=== PATIENT | male | born 1980 | race Caucasian/White ===

== ENCOUNTER 2016-05-04 16:58 | Emergency (ER) | payer OTHER ==
--- NOTE | 2016-05-04 17:30 | ED EKG INTERP ---
EKG Interpretation - EKG Time of EKG reading by physician:: 17:17 EKG Read and Signed by:: Dorothy Beltran EKG Interpretation (*Must complete 3 of following elements*): Normal Rate: 73 Rhythm: NSR [place]: normal QRS: normal NM Interval: normal ST Wave: normal Attestation - Scribe Verification/Attestation Scribe:: Filemon Tolentino Acting as Scribe for:: Dorothy Beltran Scribe documention review:: This chart was documented by a scribe and accurately reflects the service the provider performed and the decisions made by the provider. Physician Attestation - Physician Attestation I, the provider, attest to the following statement:: Dorothy Beltran Physician documentation Attestation:: This documentation recorded by the scribe accurately reflects the service I personally performed and the decisions made by me.
--- NOTE | 2016-05-04 17:47 | EKG Report ---
Test Performed on : 05/04/2016 5:17:23 PM Test Reason : chest pain/epigastric pain Blood Pressure : / mmHG Vent. Rate : 073 BPM Atrial Rate : 073 BPM P-R Int : 158 ms QRS Dur : 088 ms QT Int : 372 ms P-R-T Axes : 039 062 034 degrees QTc Int : 409 ms Normal sinus rhythm. Normal ECG No previous ECGs available Unconfirmed Result
--- NOTE | 2016-05-04 18:56 | PROVIDER DOCUMENTATION ---
HPI-Abdominal Pain/GI Problem - General Chief Complaint: Epigastric Pain Stated Complaint: FLU LIKE SX Time Seen by Provider: 05/04/16 18:39 Source: patient Allergies/Adverse Reactions: Patient Allergies Allergy/AdvReac Type Severity Reaction Status Date / Time venom-honey bee Allergy Severe ANAPHYLAXIS Verified 09/22/15 15:53 [bee venom (honey bee)] ibuprofen [From Motrin] Allergy RASH Verified 09/22/15 15:53 strawberry Allergy RASH Verified 09/22/15 15:53 tramadol Allergy RASH Verified 09/22/15 15:53 - History of Present Illness-ABD Nature of Presenting Problems: 36 y/o WM c/o N/V/D, abd. pain, CP x 7 days. Pt states 8/10 pain and constant. States vomits every time he eats, about 3x daily, and has 4-5 episodes of diarrhea daily. CP is central and radiates to R anterior chest. Denies any numbness/tingling, radiation to back, UE, or jaw. Reports had the "bird flu" 8 months ago and had to be hospitalized for it here. Denies influenza vaccine, sick contacts, fever, international travel. States chills. Review of Systems - Adult - REVIEW OF SYSTEMS - ADULT Constitutional: reports: chills. denies: fever Eyes: reports: no symptoms reported. denies: blurred vision, double vision Ears, Nose, Mouth & Throat: reports: no symptoms reported. denies: ear pain, nose pain, throat pain Cardiovascular: reports: see HPI, chest pain. denies: palpitations Respiratory: reports: no symptoms reported. denies: cough, shortness of breath , wheezing Gastrointestinal: reports: see HPI, abdominal pain, hematemesis, diarrhea, nausea, vomiting. denies: constipation, rectal bleeding Genitourinary: reports: no symptoms reported. denies: dysuria, discharge Musculoskeletal: reports: no symptoms reported. denies: joint pain, joint swelling Integumentary: reports: no symptoms reported. denies: nail changes, rash Neurological: reports: no symptoms reported. denies: numbness, paresthesia Psychiatric: reports: no symptoms reported Endocrine: reports: no symptoms reported. denies: cold intolerance, heat intolerance Hematologic/Lymphatic: reports: no symptoms reported. denies: easy bruising, prolonged bleeding Allergic/Immunologic: reports: no symptoms reported All Other Systems: Reviewed and Negative Past History - Adult - PAST MEDICAL HISTORY-ADULT Review of Records: reports: Nursing Assessment Review, Medications Reviewed Major Childhood Illnesses: reports: denies history Cardiovascular: reports: denies history Respiratory: reports: denies history Gastrointestinal: reports: denies history Obstetrical/Gynecological: reports: denies history Genitourinary: reports: kidney stones Musculoskeletal: reports: denies history Neurological: reports: denies history Endocrine/Immune: reports: denies history Other Conditions: reports: denies history - PRIOR SURGERIES/PROCEDURES Surgical/Procedure History: reports: none - IMMUNIZATION STATUS Childhood Immunizations: See Nurse Assessment Flu Vaccine: See Nurse Assessment - SOCIAL HISTORY Smoking: chew, less than 1 pack/day Provider spent 3-5 mins advising pt. on dangers of tobacco.: Discussed manners to quit use, and f/u contacts for add'l counseling. Alcohol Use Frequency: occasionally Number of drinks per typical drinking period:: 2 drinks Physical Exam-General - PHYSICAL EXAM-ADULT Initial Vital Signs Reviewed: Yes - CONSTITUTIONAL General Appearance: alert, mild distress - EYES Eyes: pink conjunctivae - HEAD, EARS, NOSE, MOUTH & THROAT HENMT: normocephalic/atraumatic, moist mucous membranes, pharynx normal - NECK Neck: supple, normal inspection - RESPIRATORY Respiratory: lungs clear, normal breath sounds. negative: chest non-tender ( TTP central), crackles, rales, rhonchi, stridor, wheezing - CARDIOVASCULAR Cardiovascular: regular rate, rhythm. negative: bradycardia, tachycardia - GASTROINTESTINAL (ABDOMEN) Abdominal Exam: normal bowel sounds, soft, tenderness (epigastric). negative: distended, guarding, rigid, rebound, McBurney's point tenderness, Siddiqui's sign - MUSCULOSKELETAL Back Exam: normal inspection, no CVA tenderness Extremity: normal gait - SKIN Integumentary: normal color, normal turgor, warm/dry - NEUROLOGIC Neurologic: negative: aphasia - PSYCHIATRIC Psych/Mental Status: normal mood/affect, normal thought content, normal thought process, oriented x 3 Progress - PLAN OF CARE/RESULTS Progress/Plan/Lab Results: Laboratory Tests 05/04/16 05/04/16 05/04/16 18:00 18:00 18:00 WBC 8.57 RBC 5.26 Hgb 14.7 Hct 44.1 MCV 83.8 MCH 27.9 MCHC 33.3 RDW Std Deviation 13.5 Plt Count 258 MPV 10.0 Immature Gran % (Auto) 0.7 H Neut % (Auto) 60.4 Lymph % (Auto) 25.1 [place] % (Auto) 7.6 Eos % (Auto) 5.5 Baso % (Auto) 0.7 Immature Gran # (Auto) 0.06 H Neut # (Auto) 5.18 Lymph # (Auto) 2.15 [place] # (Auto) 0.65 H Eos # (Auto) 0.47 Baso # (Auto) 0.06 Sodium 138 Potassium 3.6 Chloride 103 Carbon Dioxide 24 L Anion Gap 11 BUN 9 Creatinine 0.9 Estimated GFR/1.73 m2 > 60 BUN/Creatinine Ratio 10 Glucose 103 Calculated Osmolality 275 Calcium 9.5 Total Bilirubin 0.50 AST 142 H ALT 155 H Alkaline Phosphatase 88 Troponin T < 0.010 Total Protein 7.7 Albumin 4.1 Globulin 4.0 Albumin/Globulin Ratio 1.0 Amylase 38 Lipase 46 Urine Source Urine Color Urine Clarity Urine pH Ur Specific [place] Urine Protein Urine Ketones Urine Blood Urine Nitrite Urine Bilirubin Urine Urobilinogen Urine Microscopic RBC Urine WBC Urine Microscopic WBC Ur Epithelial Cells Urine Bacteria Urine Glucose Influenza A (Rapid) Influenza B (Rapid) 05/04/16 05/04/16 18:10 Unknown WBC RBC Hgb Hct MCV MCH MCHC RDW Std Deviation Plt Count MPV Immature Gran % (Auto) Neut % (Auto) Lymph % (Auto) [place] % (Auto) Eos % (Auto) Baso % (Auto) Immature Gran # (Auto) Neut # (Auto) Lymph # (Auto) [place] # (Auto) Eos # (Auto) Baso # (Auto) Sodium Potassium Chloride Carbon Dioxide Anion Gap BUN Creatinine Estimated GFR/1.73 m2 BUN/Creatinine Ratio Glucose Calculated Osmolality Calcium Total Bilirubin AST ALT Alkaline Phosphatase Troponin T Total Protein Albumin Globulin Albumin/Globulin Ratio Amylase Lipase Urine Source CLEAN CATCH Urine Color YELLOW Urine Clarity CLEAR Urine pH 7.0 Ur Specific [place] 1.010 Urine Protein NEGATIVE Urine Ketones NEGATIVE Urine Blood NEGATIVE Urine Nitrite NEGATIVE Urine Bilirubin NEGATIVE Urine Urobilinogen NORMAL Urine Microscopic RBC <10 Urine WBC NEGATIVE Urine Microscopic WBC <10 Ur Epithelial Cells <10 Urine Bacteria NEGATIVE Urine Glucose NEGATIVE Influenza A (Rapid) NEGATIVE Influenza B (Rapid) NEGATIVE Orders Category Date Time Status Saline Loc DIRECTED Care 05/04/16 18:41 Active NPO Diet 05/04/16 18:[address] ABD/PELVIS W/ IV CONT ONLY [CT] Stat Exams 05/04/16 20:09 Completed AMYLASE [CHEM] Stat Lab 05/04/16 18:00 Completed CBC WITH ELECTRONIC DIFF [HEME] Stat Lab 05/04/16 18:00 Completed COMPREHENSIVE METABOLIC PANEL [CHEM] Stat Lab 05/04/16 18:[address] Stat Lab 05/04/16 18:10 Completed LIPASE [CHEM] Stat Lab 05/04/16 18:00 Completed TROPONIN T Stat Lab 05/04/16 18:[address] W/POSS RFLX CULT [URINALYSIS] Stat Lab 05/04/16 Completed 0.9% Sodium Chloride Inj [Ns] 1,000 ml Med 05/04/16 18:57 Discontinued IV 999 mls/hr Ciprofloxacin [Cipro] Med 05/04/16 21:22 Discontinued 500 mg PO NOW ONE Hydrocodone/APAP 7.5 mg/325 mg [[place]-7.5] Med 05/04/16 21:25 Discontinued 1 each PO NOW ONE Morphine Med 05/04/16 21:25 Discontinued 4 mg IV NOW ONE Ondansetron Odt [Zofran Odt] Med 05/04/16 21:25 Discontinued 4 mg PO NOW ONE Ondansetron [Zofran] Med 05/04/16 18:57 Discontinued 4 mg IV NOW ONE Pantoprazole [Protonix] Med 05/04/16 18:58 Discontinued 40 mg IV NOW ONE Sodium Chloride 0.9% Med 05/04/16 18:58 Discontinued 10 ml INJ NOW ONE EKG [EKG] Stat Ther 05/04/16 17:17 Draft Vital Signs Temp Pulse Resp BP Pulse Ox 05/04/16 22:18 98 F 65 18 157/099 95 05/04/16 17:09 98.3 F 95 H 20 135/73 97 venom-honey bee [bee venom (honey bee)] Allergy (Severe, Verified 09/22/15 15:53 ) ANAPHYLAXIS ibuprofen [From Motrin] Allergy (Verified 09/22/15 15:53) RASH strawberry Allergy (Verified 09/22/15 15:53) RASH tramadol Allergy (Verified 09/22/15 15:53) RASH Clindamycin [Cleocin] 150 mg PO Q6HR #30 capsule 09/22/15 Hydrocodone/APAP 5 mg/325 mg [[place]-5] 1 each PO Q6H PRN PRN #12 tablet Sulfamethoxazole/Trimethoprim [Bactrim Ds Tablet] 1 each PO BID #10 tablet 09/21 Azithromycin 500 mg PO BID #3 tablet 05/04/16 Ciprofloxacin HCl [Cipro] 500 mg PO BID #10 tablet 05/04/16 Dicyclomine [Bentyl] 10 mg PO 4XDAY #30 capsule 05/04/16 Omeprazole [Prilosec] 40 mg PO DAILY #30 capsule. 05/04/16 Ondansetron [Zofran] 4 mg PO Q6H PRN PRN #20 tablet 05/04/16 Promethazine [Phenergan] 25 mg PO Q6H PRN PRN #20 tablet 05/04/16 NICOTINE DEPENDENCE, CIGARETTES, UNCOMPLICATED (05/04/16) FATTY (CHANGE OF) LIVER, NOT ELSEWHERE CLASSIFIED (05/04/16) HEMATEMESIS (05/04/16) OTHER CHEST PAIN (05/04/16) EPIGASTRIC PAIN (05/04/16) EPIGASTRIC ABDOMINAL TENDERNESS (05/04/16) NAUSEA WITH VOMITING, UNSPECIFIED (05/04/16) DIARRHEA, UNSPECIFIED (05/04/16) CHILLS (WITHOUT FEVER) (05/04/16) ABNORMAL LEVELS OF OTHER SERUM ENZYMES (05/04/16) TOBACCO ABUSE COUNSELING (05/04/16) PERSONAL HISTORY OF URINARY CALCULI (05/04/16) Discussed pt with Dr. Kirkpatrick; he agreed with d/c and f/u with GI specialist after reviewing CT and labwork. Discussed results with pt and pt passed PO challenge prior to d/c from the ED. states feeling better. - CT/MRI 1 CT Study: Abdomen, Pelvis Impression: See EMR Report (No obstruction, free fluid, appendicitis, or significant change since 12/31/2014. per Dr. Wylie) Departure - Departure Time of Disposition Order: 21:13 DIAGNOSIS: Elevated liver enzymes Nausea & vomiting Qualifiers: Vomiting type: unspecified Vomiting Intractability: non-intractable Qualified Code(s): R11.2 - Nausea with vomiting, unspecified Disposition: HOME 01 Certified Medical Emergency: Emergent Condition: Stable Additional Instructions: Follow up with specialist for recheck. Take medications as directed. Drink plenty of fluids. ED Follow Up Instructions: You have been treated by a care provider in the Emergency Department. These instructions are being provided to you so you can have an understanding of how to care for yourself upon discharge. Upon discharge from the Emergency Department, you are responsible for making arrangements for follow-up care by a physician of your choice. Take all prescribed medications as directed. Return to the Emergency Department immediately for any new or worsening symptoms. You may call the Physician Referral phone number at [phone] to obtain a list of Physicians who are taking new patients. Prescriptions: Azithromycin 500 mg PO BID #3 tablet Dicyclomine [Bentyl] 10 mg PO 4XDAY #30 capsule Ciprofloxacin HCl [Cipro] 500 mg PO BID #10 tablet Promethazine [Phenergan] 25 mg PO Q6H PRN PRN #20 tablet PRN Reason: Nausea Omeprazole [Prilosec] 40 mg PO DAILY #30 capsule. Ondansetron [Zofran] 4 mg PO Q6H PRN PRN #20 tablet PRN Reason: Nausea Referrals: None,PCP [Primary Care Provider] - Harrison Pedersen MD [STAFF PHYSICIAN] - Forms: Return to School/Parent Work Instructions: Dicyclomine tablets or capsules, Ondansetron tablets, Promethazine tablets, Nausea and Vomiting, Omeprazole tablets (OTC) Attestation - Physician/ Mid-level Attestation Patient care was provided by Mid-level provider (EXECUTIVE SALES ASSISTANT/PA):: Yes Mid-level provider:: Gaye Sloan Mid-level documentation review:: The Mid-level provider documentation, treatment plan and medical decision making was reviewed by the physician who agrees with all treatment and medical decision making by the [facility].
[2016-05-04] MEDS ORDERED: ZOFRAN IV ONE (18:57)
[2016-05-04] MEDS ORDERED: NS 1,000 ML IV ONE (18:57)
[2016-05-04] MEDS ORDERED: SODIUM CHLORIDE 0.9% INJ ONE (18:58)
[2016-05-04] MEDS ORDERED: PROTONIX IV ONE (18:58)
[2016-05-04 19:31] LABS: MANUAL DIFF NEEDED? NO
[2016-05-04 19:46] LABS: BASO% 0.7 % (0.0-0.8); EOS# 0.47 X1000 (0.0-0.7); EOS% 5.5 % (0.0-10.0); HEMATOCRIT 44.1 % (42.0-52.0); HEMOGLOBIN 14.7 g/dL (14.0-18.0); IMM GRAN# 0.06 X1000 (0.0-0.04); IMM GRAN% 0.7 % (0.0-0.5); LYMPH# 2.15 X1000 (1.2-3.4); LYMPH% 25.1 % (20.5-51.1); MCH 27.9 PG (27-31); MCHC 33.3 g/dL (33-37); MCV 83.8 FL (81-99); MONO# 0.65 X1000 (0.11-0.59); MONO% 7.6 % (1.7-9.3); NEUT% 60.4 % (42.2-75.2); PLT 258 X1000 (130-400); RBC 5.26 XMIL (4.7-6.1)
[2016-05-04 19:50] LABS: AGAP 11; ALBUMIN 4.1 g/dL (3.5-5.0); ALKALINE PHOSPHATASE 88 U/L (32-122); AMYLASE 38 U/L (20-200); BUN 9 mg/dL (8-22); CALCIUM 9.5 mg/dL (8.8-10.2); CHLORIDE 103 mmol/L (98-107); COSMO 275; GOT 142 U/L (10-34); GPT 155 U/L (10-44); LIPASE 46 U/L (13-60); POTASSIUM 3.6 mmol/L (3.5-5.1); SODIUM 138 mmol/L (136-145); TCO2 24 mmol/L (25-35); TOTAL PROTEIN 7.7 g/dL (6.3-8.3)
[2016-05-04 20:29] LABS: URINE CULTURE PL NEEDED? NO; URINE SOURCE CLEAN CATCH
[2016-05-04 20:41] LABS: BILIRUBIN URINE NEGATIVE (NEGATIVE); BLOOD URINE NEGATIVE (NEGATIVE); CLARITY CLEAR (CLEAR); COLOR YELLOW; GLUCOSE URINE NEGATIVE (NEGATIVE); LEUKOCYTES URINE NEGATIVE (NEGATIVE); NITRITE URINE NEGATIVE (NEGATIVE); PROTEIN URINE NEGATIVE (NEGATIVE); UROBILINOGEN URINE NORMAL
[2016-05-04 20:42] LABS: URINE EPITHELIAL CELLS <10 /HPF (<10); URINE RBC <10 /HPF (<10); URINE WBC <10 /HPF (<10)
[2016-05-04] MEDS ORDERED: CIPRO PO ONE (21:22)
[2016-05-04] MEDS ORDERED: MORPHINE IV ONE (21:25)
[2016-05-04] MEDS ORDERED: ZOFRAN ODT PO ONE (21:25)
[2016-05-04] MEDS ORDERED: NORCO-7.5 PO ONE (21:25)
[2016-05-04 22:18] VITALS: BP 157/099
--- NOTE | 2016-05-05 11:16 | Diag Imaging Result Document ---
PROCEDURE NAME: CT ABD/PELVIS W/ IV CONT ONLY - 05/04/2016 CT SCAN OF THE ABDOMEN AND PELVIS WITH IV CONTRAST: Oral contrast was not administered as per the Emergency Department Physician's request. INDICATION: Chest pain. Vomiting. Epigastric pain. Preliminary interpretation was given by the on-call radiologist. FINDINGS: There is decreased hepatic attenuation consistent with hepatic steatosis. The previously noted nodular densities within the posteromedial right lower lobe have cleared. The spleen appears normal in size. The pancreas and adrenal glands appear normal. There is a stable left renal cyst. Right renal calcification is no longer present. The appendix appears normal. There is no free fluid within the abdomen or pelvis. No adenopathy is identified. There are no inflammatory changes. There is a small fat-containing umbilical hernia. IMPRESSION: 1. Normal appendix. 2. No evidence for obstruction. 3. Hepatic steatosis.
== END 2016-05-04 22:00 | disposition home or self-care (01) ==
LOC: P.ED 16:58
DX: R11.2 Nausea with vomiting, unspecified (principal); R74.8 Abnormal levels of other serum enzymes; K76.0 Fatty (change of) liver, not elsewhere classified; R10.13 Epigastric pain; R19.7 Diarrhea, unspecified; R07.89 Other chest pain; R68.83 Chills (without fever); K92.0 Hematemesis; R10.816 Epigastric abdominal tenderness; F17.210 Nicotine dependence, cigarettes, uncomplicated; Z71.6 Tobacco abuse counseling; Z87.442 Personal history of urinary calculi
CPT/HCPCS: 74177; 80053; 81001; 82150; 83690; 84484; 85025; 87804; 93005; 96361; 96374; 96375; C9113; J2270; J2405; J7030; Q9967; S0164

== ENCOUNTER 2016-07-06 18:45 | Emergency (ER) | payer OTHER ==
[2016-07-06 18:57] VITALS: BP 152/91
--- NOTE | 2016-07-06 19:07 | PROVIDER DOCUMENTATION ---
HPI-General Adult - General Chief Complaint: Male Stated Complaint: MALE Time Seen by Provider: 07/06/16 18:59 Source: patient Allergies/Adverse Reactions: Patient Allergies Allergy/AdvReac Type Severity Reaction Status Date / Time venom-honey bee Allergy Severe ANAPHYLAXIS Verified 07/06/16 19:12 [bee venom (honey bee)] ibuprofen [From Motrin] Allergy RASH Verified 07/06/16 19:12 strawberry Allergy RASH Verified 07/06/16 19:12 tramadol Allergy RASH Verified 07/06/16 19:12 Home Medications: Home Medication List Medication Instructions Recorded Confirmed Last Taken Type Magnesium Citrate [Citrate of 300 ml PO ONCE #1 bottle 07/06/16 Unknown Rx Magnesia] Sulfamethoxazole/Trimethoprim 1 each PO BID #10 tablet 07/06/16 Unknown Rx [Bactrim Ds Tablet] - History of Present Illness -Gen Adult Nature of Presenting Problems: Pt. is 36 yom that presents with c/o burning on urination with suprapubic pelvic pain. Pt. reports some abd pain also with nausea. Pt. denies any fever or vomiting or diarrhea. Pt. has no other complaints at time of exam. Location of Pain/Injury: reports: abdomen, pelvis, genitalia. denies: head, face, mouth, neck, chest, upper extremity, hand(s), back, lower extremity, feet , upper body, lower body, generalized Pain Radiation: reports: no radiation Quality of Pain: reports: aching, burning. denies: cramping, dull, fullness, indigestion, pressure, sharp, stabbing, tearing, throbbing, tightness Severity: reports: moderate. denies: mild, severe Onset/Duration: reports: gradual, 2 days ago Timing: reports: still present. denies: improving, gone now, resolved prior to arrival, intermittent, constant, changing over time, getting worse Context/Activities at Onset: reports: none. denies: recent emotional stress, recent physical stress, recent trauma history, possible bad food, cold exposure , out of country travel Modifying Factors: improves with: nothing Associated Symptoms: reports: genitourinary problems, nausea, other (abd pain). denies: anxiety, arm pain, back/neck pain, chest pain, constipation, cough, diaphoresis, diarrhea, dizziness, EENT symptoms, fatigue, fever/chills, headaches, heartburn, joint pain, loss of appetite, malaise, muscle aches, sinus congestion/drainage, rash, seizure, shortness of breath, sensory/motor loss, pain with inspiration, swelling/mass in abdomen, syncope, vomiting, weakness, trouble walking Similar Symptoms Previously?: Yes Recently seen or treated by another doctor?: No Review of Systems - Adult - REVIEW OF SYSTEMS - ADULT Constitutional: reports: see HPI. denies: chills, fever, fatique Eyes: reports: see HPI. denies: discharge, blurred vision, double vision Ears, Nose, Mouth & Throat: reports: see HPI. denies: ear pain, hearing loss, sinus problem, nose pain, loose teeth, mouth/dental pain, throat pain, throat swelling Cardiovascular: reports: see HPI. denies: chest pain, irregular heart rate, orthopnea, syncope Respiratory: reports: see HPI. denies: cough, dyspnea on exertion, pleurisy, shortness of breath, wheezing Gastrointestinal: reports: see HPI, nausea. denies: abdominal pain, hematemesis , diarrhea, vomiting Genitourinary: reports: see HPI. denies: dysuria, discharge, flank pain, hesitency, urgency Musculoskeletal: reports: see HPI. denies: bone pain, back pain, joint pain, muscle aches, neck pain Integumentary: reports: see HPI. denies: hives, itching, rash, skin thickening Neurological: reports: see HPI. denies: ataxia, headache/migraines, numbness, seizure, tremors Psychiatric: reports: see HPI. denies: anxiety, depression, emotional problems , insomnia, panic attacks, suicidal thoughts Endocrine: reports: see HPI. denies: excessive sweating, cold intolerance, heat intolerance, polyuria Past History - Adult - PAST MEDICAL HISTORY-ADULT Review of Records: reports: Old Records Reviewed, Nursing Assessment Review, Medications Reviewed, Social history reviewed & non-contributory. Major Childhood Illnesses: reports: denies history Cardiovascular: reports: denies history Respiratory: reports: denies history Gastrointestinal: reports: denies history Obstetrical/Gynecological: reports: denies history Genitourinary: reports: kidney stones Musculoskeletal: reports: denies history Neurological: reports: denies history Endocrine/Immune: reports: denies history Other Conditions: reports: denies history - PRIOR SURGERIES/PROCEDURES Surgical/Procedure History: reports: none - IMMUNIZATION STATUS Childhood Immunizations: See Nurse Assessment Flu Vaccine: See Nurse Assessment - FAMILY HISTORY Family History: reviewed, not pertinent - SOCIAL HISTORY Smoking: quit greater than 1 year, chew Provider spent 3-5 mins advising pt. on dangers of tobacco.: Discussed the need to quit using tobacco Physical Exam-General - PHYSICAL EXAM-ADULT Initial Vital Signs Reviewed: Yes - CONSTITUTIONAL General Appearance: alert, mild distress, obese. negative: thin, anxious, lethargic, slow to respond, obtunded, combative - EYES Eyes: PERRL/EOMI, pink conjunctivae. negative: conjuctival exudate, scleral icterus, subconjunctival hemorrhage - HEAD, EARS, NOSE, MOUTH & THROAT HENMT: normocephalic/atraumatic, moist mucous membranes. negative: angioedema, frontal tenderness, maxillary tenderness - NECK Neck: non-tender, full range of motion, supple, normal inspection. negative: lymphadenopathy, trachial deviation, thyromegaly - RESPIRATORY Respiratory: lungs clear, normal breath sounds. negative: crackles, rales, rhonchi, stridor, wheezing - CARDIOVASCULAR Cardiovascular: normal peripheral pulses, regular rate, rhythm, no edema, no JVD , no murmur. negative: extra beats, friction rub, irregularly irregular - CHEST (BREASTS) Chest/Breast: deferred - GASTROINTESTINAL (ABDOMEN) Abdominal Exam: normal bowel sounds, soft, tenderness. negative: distended, guarding, rigid, rebound, hernia, mass - GENITOURINARY Male Genitalia: deferred Rectal Exam: deferred Hemoccult Exam: deferred - LYMPHATIC Lymphatic: no adenopathy. negative: axilla node tender, cervical node tenderness - MUSCULOSKELETAL Back Exam: normal inspection, no CVA tenderness, no vertebral tenderness. negative: ecchymosis, swelling, vertebral tenderness Extremity: normal range of motion, non-tender, normal gait, normal inspection. negative: deformity, erythema, inflammation, swelling, tenderness Peripheral Pulses: radial (R): 2+, radial (L): 2+ - SKIN Integumentary: normal color, normal turgor, warm/dry. negative: cyanosis, diaphoresis, ecchymosis, erythema, jaundice, mottled, pallor, petechiae, purpura , rash, swelling, tenderness - NEUROLOGIC Neurologic: grossly normal, no motor/sensory deficits. negative: aphasia, facial droop, focal weakness, motor weakness, sensory deficit - PSYCHIATRIC Psych/Mental Status: normal mood/affect, normal thought content, normal thought process, oriented x 3. negative: anxious, paranoid, tearful Progress - PLAN OF CARE/RESULTS Progress/Plan/Lab Results: Discussed results and plan of care with patient. Patient agrees with plan and verbalizes understanding. Vital Signs Temp Pulse Resp BP Pulse Ox 07/06/16 18:55 98 F 65 18 152/91 97 venom-honey bee [bee venom (honey bee)] Allergy (Severe, Verified 07/06/16 19:12 ) ANAPHYLAXIS ibuprofen [From Motrin] Allergy (Verified 07/06/16 19:12) RASH strawberry Allergy (Verified 07/06/16 19:12) RASH tramadol Allergy (Verified 07/06/16 19:12) RASH No Home Medications 07/06/16 Laboratory 07/06/16 18:55 Urine Source VOIDED Urine Color YELLOW Urine Clarity CLEAR Urine pH 5.0 Ur Specific [place] 1.020 Urine Protein TRACE A Urine Ketones NEGATIVE Urine Blood NEGATIVE Urine Nitrite NEGATIVE Urine Bilirubin NEGATIVE Urine Urobilinogen NORMAL Urine WBC TRACE A Urine Glucose NEGATIVE Orders Category Date Time Status FLAT/UPRIGHT ABD/1 VIEW CHEST [RAD] Stat Exams 07/06/16 19:[address] W/POSS RFLX CULT [URINALYSIS] Stat Lab 07/06/16 18:55 Results CefTRIAXONE [Rocephin] Med 07/06/16 19:26 Discontinued 1 gm IM NOW ONE Lidocaine 1% Pf [Xylocaine-Mpf 1%] Med 07/06/16 19:26 Discontinued 5 ml INJ NOW ONE Laboratory Tests 07/06/16 18:55 Urine Source VOIDED Urine Color YELLOW Urine Clarity CLEAR Urine pH 5.0 Ur Specific [place] 1.020 Urine Protein TRACE A Urine Ketones NEGATIVE Urine Blood NEGATIVE Urine Nitrite NEGATIVE Urine Bilirubin NEGATIVE Urine Urobilinogen NORMAL Urine WBC TRACE A Urine Glucose NEGATIVE - XRAY 1 XRAY Study: Chest, Abdomen XRAY Interpretation: Mild constipation ([place]) Departure - Departure Time of Disposition Order: 19:27 DIAGNOSIS: Cystitis Abdominal pain Qualifiers: Abdominal location: generalized Qualified Code(s): R10.84 - Generalized abdominal pain Constipation Qualifiers: Constipation type: unspecified constipation type Qualified Code(s): K59.00 - Constipation, unspecified Disposition: HOME 01 Certified Medical Emergency: Emergent Condition: Stable Additional Instructions: Follow up with primary care physician Take medications as directed Return to ED for any concerns or worsening of symptoms ED Follow Up Instructions: You have been treated by a care provider in the Emergency Department. These instructions are being provided to you so you can have an understanding of how to care for yourself upon discharge. Upon discharge from the Emergency Department, you are responsible for making arrangements for follow-up care by a physician of your choice. Take all prescribed medications as directed. Return to the Emergency Department immediately for any new or worsening symptoms. You may call the Physician Referral phone number at [phone] to obtain a list of Physicians who are taking new patients. Prescriptions: Sulfamethoxazole/Trimethoprim [Bactrim Ds Tablet] 1 each PO BID #10 tablet Magnesium Citrate [Citrate of Magnesia] 300 ml PO ONCE #1 bottle Attestation - Physician/ TYSON Attestation Patient care was provided by Advanced Practice Provider:: Yes Advanced Practice Provider:: Maegan Gabriel Advanced Practice Provider documentation review:: The Mid-level provider documentation, treatment plan and medical decision making was reviewed by the physician who agrees with all treatment and medical decision making by the MLP.
[2016-07-06 19:08] LABS: URINE SOURCE VOIDED
[2016-07-06 19:19] LABS: BILIRUBIN URINE NEGATIVE (NEGATIVE); BLOOD URINE NEGATIVE (NEGATIVE); CLARITY CLEAR (CLEAR); COLOR YELLOW; GLUCOSE URINE NEGATIVE (NEGATIVE); LEUKOCYTES URINE TRACE (NEGATIVE); NITRITE URINE NEGATIVE (NEGATIVE); PROTEIN URINE TRACE mg/dL (NEGATIVE); UROBILINOGEN URINE NORMAL
[2016-07-06] MEDS ORDERED: ROCEPHIN IM ONE (19:26)
[2016-07-06] MEDS ORDERED: XYLOCAINE-MPF 1% INJ ONE (19:26)
[2016-07-06 19:32] LABS: URINE CAST NONE SEEN /LPF; URINE CRYSTAL NONE SEEN /HPF; URINE CULTURE PL NEEDED? YES; URINE EPITHELIAL CELLS <10 /HPF (<10); URINE WBC <10 /HPF (<10)
--- NOTE | 2016-07-07 08:17 | Diag Imaging Result Document ---
PROCEDURE NAME: FLAT/UPRIGHT ABD/1 VIEW CHEST - 07/06/2016 FLAT AND UPRIGHT AND CHEST, THREE VIEWS: FINDINGS: The lungs are well expanded. The heart is not enlarged. There are no infiltrates. No free air beneath the diaphragm. No bowel obstruction. No organomegaly. No abnormal abdominal calcifications. No foreign body. IMPRESSION: No acute abnormality.
== END 2016-07-06 19:57 | disposition home or self-care (01) ==
LOC: P.ED 18:45
DX: K59.00 Constipation, unspecified (principal); R30.9 Painful micturition, unspecified; R10.2 Pelvic and perineal pain; R10.9 Unspecified abdominal pain; R11.0 Nausea; E66.9 Obesity, unspecified; Z87.442 Personal history of urinary calculi; Z87.891 Personal history of nicotine dependence
CPT/HCPCS: 74022; 81001; 87088; 96372; J0696